=== PATIENT | female | born 1990 | race Caucasian/White ===

== ENCOUNTER 2018-08-17 14:51 | Observation (INO) ==
[2018-08-17] MEDS ORDERED: ONDANSETRON 4 MG/2 ML VIAL IV ONE ×2 (15:32→16:21)
--- NOTE | 2018-08-17 15:48 | Emergency Department Note ---
Fall HPI - General Chief Complaint: Fall Stated Complaint: fall from horse Time Seen by Provider: 08/17/18 15:21 Source: patient Mode of arrival: EMS Limitations: no limitations - History of Present Illness HPI Narrative: 27-year-old female presents after fall off a horse. The first was going about 20 miles an hour and she fell off hitting a pole. Most of her pain is on the left side. She denies hitting her head or loss of consciousness. She denies any neck pain. She denies any abdominal pain. She denies any numbness or tingling down her legs. In complaint is behind the left shoulder blade she has pain and from her waist to her low back she has pain. Pain is a lot worse with moving. She is currently on her menstrual cycle and does not thinks there is any chance of her being . - Related Data Home Medications Medication Instructions Recorded Confirmed No Known Home Meds 08/17/18 08/17/18 Allergies Allergy/AdvReac Type Severity Reaction Status Date / Time [place] Allergy Mild Verified 08/17/18 17:57 ciprofloxacin [From Cipro] Allergy Verified 08/17/18 14:53 Review of Systems All systems ED: reviewed and negative except as stated. Fall PMH - Past Medical History Medical history: Reports: non-contributory Surgical history ED: Reports: non-contributory Psychiatric history: Reports: no psych history [employer] history: Reports: non-contributory Family history: Reports: no significant family history - Social History smoking status: Never smoker Physical Exam Limitations: no limitations General appearance: alert, in no apparent distress Head: atraumatic Eye: Present: normal appearance. Absent: conjunctival injection Neck: Present: normal inspection, full ROM. Absent: tenderness Chest: Present: normal inspection, symmetric chest wall rise. Absent: tenderness Respiratory: Present: normal lung sounds bilaterally Cardiovascular: Present: tachycardia, normal heart sounds Abdominal: Present: soft, normal bowel sounds. Absent: tenderness Shoulder: Present: full ROM, tenderness, other (bilateral anterior shoulder is normal. She does have some tenderness lateral to the thoracic spine on the left side below the left shoulder blade. She has full range of motion. The scapula is nontender without deformity). Absent: swelling, deformity, dislocation, tenderness over AC joint Arm: Present: normal inspection, full ROM Elbow: Present: normal inspection, full ROM Forearm/Wrist: Present: normal inspection, full ROM Hand: Present: normal inspection, full ROM Hip/Pelvis: Present: normal inspection, full ROM, pelvis stable, other ( nontender with pelvic tilt) Upper leg: Present: normal inspection, full ROM Knee: Present: normal inspection, full ROM Lower leg: Present: normal inspection, full ROM Ankle: Present: normal inspection, full ROM Foot/toe: Present: normal inspection, full ROM Back: Present: other (she has paraspinal tenderness from the thoracic spine T10- 11 to the sacrum. She does not have any vertebral tenderness and there is no step-off deformities. There is no swelling or bruising. She states this is where her pain meds.). Absent: L-S tenderness, muscle spasm Neurological: Present: alert, oriented X3 Psychiatric: Present: normal affect, normal mood Skin: Present: warm, dry, intact Course Vital Signs Temperature 96.9 F L 08/17/18 14:54 Pulse Rate 101 H 08/17/18 14:54 Respiratory Rate 20 08/17/18 14:54 Blood Pressure 131/78 08/17/18 14:54 Temperature 98.3 F 08/17/18 17:52 Pulse Rate 77 08/17/18 17:33 Respiratory Rate 16 08/17/18 17:52 Blood Pressure 114/77 08/17/18 17:52 Pulse Oximetry (%) 100 08/17/18 17:52 Fall - MDM Narrative Medical decision making narrative: Because of the pulmonary contusion she will be admitted observation. Vitals stable and her pain was relatively controlled - Lab Data Lab results reviewed: Yes I reviewed the patient's lab results. Result diagrams: 08/17/18 17:03 08/17/18 17:03 Lab Results 08/17/18 08/17/18 Range/Units 17:03 17:03 WBC 11.6 H (4.5-11.0) K/mcL RBC 4.58 (4.00-5.20) M/mcL Hgb 13.7 (12.0-15.0) g/dL Hct 40.5 (36.0-48.0) % MCV 88.4 (80.0-100.0) fL MCH 29.9 (26.0-34.0) pg MCHC 33.8 (31.0-36.0) g/dL RDW 12.8 (11.5-14.5) % Plt Count 226 (140-440) K/mcL MPV 10.0 (7.4-10.4) fL Gran % 91.3 H (38.0-78.0) % Lymph % (Auto) 4.8 L (15.5-49.0) % Lee % (Auto) 3.3 (1.0-12.0) % Eos % (Auto) 0.3 (0.0-7.0) % Baso % (Auto) 0.3 (0.0-2.0) % Gran # 10.6 H (1.8-8.0) K/mcL Lymph # (Auto) 0.6 L (1.5-4.8) K/mcL Lee # (Auto) 0.4 (0.1-0.9) K/mcL Eos # (Auto) 0 (0.0-0.7) K/mcL Baso # (Auto) 0 (0.0-0.3) K/mcL Sodium 138 (133-145) mmol/L Potassium 3.3 (3.3-5.1) mmol/L Chloride 103 (96-108) mmol/L Carbon Dioxide 22 (22-30) mmol/L Anion Gap 13.0 (8-16) BUN 10 (6-20) mg/dl Creatinine 0.7 (0.6-1.1) mg/dl GFR Calculation 119 Glucose 111 H (70-105) mg/dL Calcium 9.1 (8.6-10.4) mg/dl Total Bilirubin 0.5 (0.0-1.0) mg/dL AST 58 H (0-37) U/l ALT 46 H (0-40) U/l Alkaline Phosphatase 41 (39-117) U/L Total Protein 7.0 (5.9-8.4) gm/dL Albumin 4.3 (3.2-5.2) gm/dL Globulin 2.7 (2.2-3.7) gm/dL Albumin/Globulin Ratio 1.6 (1.0-2.3) - Radiology Data Radiology results reviewed: Yes I reviewed the patient's radiology results. 1. Nondisplaced left eighth rib fracture. Pulmonary contusion. No hemothorax or pneumothorax 2. Stable compression fractures of the L1 and L2 vertebral bodies 3. No detectable solid organ injury or vascular injury but intravenous contrast material was not administered and sensitivity is somewhat limited. 4. No hemoperitoneum Disposition Pt seen by [employer]ULATOR/PA only: No Clinical Impression: Compression fracture, Pulmonary contusion, Rib fracture Disposition: Xfer As Outpt/Obs ([facility]) Condition: Fair
[2018-08-17] MEDS: HYDROmorphone 2 MG/ML VIAL IV PRN ×2 (16:02→18:36)
--- NOTE | 2018-08-17 16:45 | Cat Scan Report ---
CLINICAL INFORMATION: Fell from a horse TECHNIQUE: Axial noncontrast enhanced images through the chest, abdomen, pelvis. Sagittally and coronally reformatted images. COMPARISON: None. FINDINGS: Intravenous contrast material was not administered. In a post trauma examination the sensitivity for evaluation of solid organ injury and vascular injury is significantly decreased without the use of contrast material. CHEST: No pneumothorax or hemopneumothorax. There is mild left lower lobe infiltrate. This is posteriorly located. There is a nondisplaced fracture of the left eighth rib posteriorly. This left lower lobe infiltrate is consistent with pulmonary contusion. No other rib fractures are identified. Sternum is negative. Right ribs are negative. The scapula is negative bilaterally. No clavicle fracture. Proximal humerus is negative. Mediastinum and aorta are not well evaluated without intravenous contrast material. No detectable mediastinal hematoma. There is no pericardial effusion. Thoracic vertebral bodies are negative. No fracture. No paraspinal soft tissue mass. ABDOMEN, PELVIS: No detectable splenic injury. Splenic contour is smooth. There is no perisplenic fluid. No detectable liver injury. No perihepatic fluid. Kidneys are negative. No perinephric fluid. No evidence for pancreatic or duodenal injury. There is no hemoperitoneum. No free intraperitoneal fluid. There is no pneumoperitoneum. No mesenteric hematoma. There is a fracture of the L1 vertebral body. There is compression of the L1 superior endplate and fracture lines within the anterior column. Pedicles and lamina are intact. Spinous processes negative. This is consistent with a stable compression fracture. There is approximately 25% loss of height anteriorly with wedging deformity. No retropulsed fragment. There is a fracture of the L2 superior endplate with mild wedging deformity. There is 30% loss of height anteriorly. Pedicles and lamina are intact. There is no retropulsion. This is considered a stable compression fracture. Lumbar spine is otherwise negative. Transverse processes are negative. Sacrum is negative. No sacral fracture. Sacroiliac joints are within normal limits. Incidental note is made of asymmetric L5 transverse processes with sacral articulations. No pelvic fracture. No hip fracture. IMPRESSION: 1. Nondisplaced left eighth rib fracture. Pulmonary contusion. No hemothorax or pneumothorax 2. Stable compression fractures of the L1 and L2 vertebral bodies 3. No detectable solid organ injury or vascular injury but intravenous contrast material was not administered and sensitivity is somewhat limited. 4. No hemoperitoneum Interpreted and Authenticated by: Ike Berumen 08/17/18
[2018-08-17 17:40] LABS: Basophils # (Auto) 0 K/mcL (0.0-0.3); Basophils % (Auto) 0.3 % (0.0-2.0); Eosinophils # (Auto) 0 K/mcL (0.0-0.7); Eosinophils % (Auto) 0.3 % (0.0-7.0); Granulocytes % (Auto) 91.3 % (38.0-78.0); Lymphocytes # (Auto) 0.6 K/mcL (1.5-4.8); Lymphocytes % (Auto) 4.8 % (15.5-49.0); Mean Cell Volume 88.4 fL (80.0-100.0); Mean Corpuscular HGB Conc 33.8 g/dL (31.0-36.0); Mean Corpuscular Hemoglobin 29.9 pg (26.0-34.0); Monocytes # (Auto) 0.4 K/mcL (0.1-0.9); Monocytes % (Auto) 3.3 % (1.0-12.0); Platelet Count 226 K/mcL (140-440); RBC 4.58 M/mcL (4.00-5.20); Red Cell Distribution Width 12.8 % (11.5-14.5)
[2018-08-17 17:50] LABS: ALT/SGPT 46 U/l (0-40); Albumin 4.3 gm/dL (3.2-5.2); Albumin/Globulin Ratio 1.6 (1.0-2.3); Alkaline Phosphatase 41 U/L (39-117); Blood Urea Nitrogen 10 mg/dl (6-20)
[2018-08-17] MEDS ORDERED: ONDANSETRON 4 MG/2 ML VIAL IV PRN (18:31)
[2018-08-17] MEDS ORDERED: ONDANSETRON 4 MG/2 ML VIAL ONE (18:39)
[2018-08-17] MEDS ORDERED: PROMETHAZINE 25 MG/ML VIAL IV PRN (19:25)
[2018-08-17] MEDS ORDERED: HYDROmorphone 2 MG/ML VIAL IV PRN (19:25)
--- NOTE | 2018-08-17 19:28 | Emergency Department Note ---
ED Note Addendum Note Addendum: I saw this patient with Lisset Yanez PA-C. I agree with her evaluation management documentation. In particular I discussed the CT findings with the patient and reviewed plan with Lisset
--- NOTE | 2018-08-17 19:42 | General Surg History&Physical ---
History of Present Illness Patient information: Note initiated : 08/17/18 at 7:39 pm Service Date, if different from initiated Date: [] Patient: Brii Ortez a 27 y/o F admitted on 08/17/18 for fall from horse. Chief Complaint: [] HPI: Ms. Ortez is a 27 year old F admitted for observation AFTER accident in which she was thrown from her horse striking her back and upper thorax against a wooden post.. She complains of left posterior lateral chest pain and lumbar back pain. She denies head injury. She denies any discomfort in her neck or her upper or lower extremities.. She denies hip pain or pelvic pain. CT of the chest reveals a nondisplaced T8 rib fracture posteriorly as well as POSTERIOR LATERAL LUNG CONTUSION with early infiltrate. There is no pneumothorax and no hemothorax. Abdominal CT does not reveal any solid organ injury and there is no free fluid in the pelvis or abdomen... Patient is admitted for control of pain and observation of her left lung contusion. Her O2 saturations are 99% on room air. Review of Systems - Constitutional headache(s) (history of migraine headaches) Past History Past medical history: No chronic medical illness Past surgical history: Cholecystectomy in March 2018 Past family history: Mother age 59 with hypertension Father age 69 with hypertension and depression Past social history: Denies tobacco use uSES ALCOHOL about once a month Denies drug use Medications and Allergies Home Medications Medication Instructions Recorded Confirmed Type No Known Home Meds 08/17/18 08/17/18 History Allergies Allergy/AdvReac Type Severity Reaction Status Date / Time kiwi Allergy Mild Verified 08/17/18 17:57 [place] Allergy Mild Verified 08/17/18 17:57 ciprofloxacin [From Cipro] Allergy Verified 08/17/18 14:53 Exam Temp Pulse Resp BP Pulse Ox 98.3 F 77 16 114/77 100 08/17/18 17:52 08/17/18 17:33 08/17/18 17:52 08/17/18 17:52 08/17/18 17:52 - General physical appearance moderate distress, moderate pain, other (very thin framed young female easy tearing with moderate distress due to back pain not use it was December so we wanted while hospital have a little while she is on. So assessment because otherwise Does not osteoarthritis.) - Eyes PERRL, normal ocular movement - ENT normal pinna, normal nares, normal mucosa, no hearing loss, no congestion, other ( no facial tenderness or asymmetry no bruises or abrasions) - Head Head exam IM: Present: atraumatic (NO TENDERNESS,,,,,,,,,,,,,,, abrasion,,,,,, or bruising of the scalp or cranium), normal inspection, normocephalic - Neck no masses ( no posterior), no bruits, trachea midline, no lymphadenopathy, no venous distension, other ( no posterior neck contusion or abrasion; excellent range of motion without discomfort no soft tissue injury of neck ;; trachea midline without any tenderness) - Cardiovascular Cardiovascular exam IM: Present: normal rate and rhythm, RRR, +S1, +S2. Absent : JVD, rubs, tachycardia - Respiratory normal expansion, normal respiratory effort, clear to auscultation, other ( no pleural rub;a superficial skin abrasion over left scapula without significant skin breakdown) - Abdomen Abdomen: Present: soft, non tender ( no tenderness noted ;no guarding; active bowel sounds), bowel sounds Hernia: Present: none - Genitourinary Present: normal external genitalia - Integumentary Present: no rash, no growths, no abnormal pigmentation - Neurologic Present: normal coordination, normal sensation ( no sensory loss in the upper or lower extremities), deep tendon reflexes ( deep tendon reflexes in upper and lower extremities are brisk and equal) - Musculoskeletal Present: other ( no bony deformity of anterior or posterior chest; no bony deformity of upper or lower extremities; stable pelvis to anterior posterior compression and lateral compression;;;;;;;;;;;;;;; excellent range of motion of both hips AND LONG BONES OF LOWER EXTREMITIES) - Psychiatric Present: oriented to time, oriented to person, oriented to place, speech is normal, memory intact Assessment and Plan (1) Blunt trauma to chest Oxygen saturations will be monitored Follow-up chest x-ray in the morning Status: Acute Priority: High Qualifiers: Encounter type: initial encounter Qualified Code(s): S29.8XXA - Other specified injuries of thorax, initial encounter (2) Compression fracture We'll treat symptomatically with analgesics and muscle relaxants Status: Acute Priority: Medium (3) Pulmonary contusion Follow-up chest x-ray in the morning Status: Acute Priority: Medium Qualifiers: Encounter type: initial encounter Laterality: left Qualified Code(s): S27.321A - Contusion of lung, unilateral, initial encounter (4) Rib fracture Status: Acute Priority: Low Qualifiers: Encounter type: initial encounter Rib fracture type: single rib Fracture type: closed Laterality: left Qualified Code(s): S22.32XA - Fracture of one rib, left side, initial encounter for closed fracture
[2018-08-17 21:11] LABS: Appearance,Urine CLEAR; Bacteria,Urine 0 /hpf (0); Bilirubin,Urine NEG (NEG); Color,Urine YELLOW; Glucose,Urine (UA) NEGATIVE (NEG); Leukocyte Esterase,Urine NEG /uL (NEG); Mucus,Urine FEW /hpf (0); Protein,Urine NEG (NEG); Specific Gravity,Urine 1.018 (1.000-1.035); Urine Blood NEG mg/dL (<0.03); Urine Hyaline Cast 1 /lpf (0-2); Urine RBC 1 /hpf (0-1); Urine Squamous Epithelial Cell 0 /hpf (0-4); Urine WBC 2 /hpf (0-4); Urobilinogen,Urine NEG (NEG)
[2018-08-17] MEDS: KETOROLAC 15 MG/ML VIAL IV SCH (21:39)
[2018-08-17] MEDS: PANTOPRAZOLE 40 MG TABLET PO SCH (21:41)
[2018-08-17] MEDS: CYCLOBENZAPRINE 10 MG TABLET PO PRN (21:41)
[2018-08-17] MEDS: oxyCODONE/APAP 5/325MG TABLET PO PRN (23:42)
[2018-08-18] MEDS: KETOROLAC 15 MG/ML VIAL IV SCH ×3 (00:41→12:17)
[2018-08-18] MEDS: oxyCODONE/APAP 5/325MG TABLET PO PRN ×2 (04:09→09:37)
[2018-08-18] MEDS: CYCLOBENZAPRINE 10 MG TABLET PO PRN (05:41)
[2018-08-18] MEDS: PANTOPRAZOLE 40 MG TABLET PO SCH (07:15)
--- NOTE | 2018-08-18 08:18 | XRay Report ---
CLINICAL INFORMATION: Fell from a horse. Left eighth rib fracture TECHNIQUE: AP portable semiupright chest x-ray COMPARISON: CT scan dated 08/17/2018 FINDINGS: Left eighth rib fracture is not visualized on plain film examination. No pneumothorax or hemothorax. No pulmonary parenchymal infiltrate. Heart size and mediastinum are normal. IMPRESSION: Negative AP chest x-ray Interpreted and Authenticated by: Ike Berumen 08/18/18
[2018-08-18 10:52] LABS: Basophils # (Auto) 0 K/mcL (0.0-0.3); Basophils % (Auto) 0.5 % (0.0-2.0); Eosinophils # (Auto) 0.1 K/mcL (0.0-0.7); Eosinophils % (Auto) 1.9 % (0.0-7.0); Granulocytes % (Auto) 70.5 % (38.0-78.0); Lymphocytes # (Auto) 1.1 K/mcL (1.5-4.8); Lymphocytes % (Auto) 19.5 % (15.5-49.0); Mean Cell Volume 88.8 fL (80.0-100.0); Mean Corpuscular HGB Conc 34.1 g/dL (31.0-36.0); Mean Corpuscular Hemoglobin 30.2 pg (26.0-34.0); Monocytes # (Auto) 0.4 K/mcL (0.1-0.9); Monocytes % (Auto) 7.6 % (1.0-12.0); Platelet Count 192 K/mcL (140-440); RBC 4.23 M/mcL (4.00-5.20); Red Cell Distribution Width 12.7 % (11.5-14.5)
--- NOTE | 2018-08-18 13:41 | General Surgery Progress Note ---
Subjective Patient reports: still having pain, pain is less, tolerating a regular diet, flatus, bowel movement, afebrile Narrative: Note initiated : 08/18/18 at 1:39 pm Service Date, if different from initiated Date: [] Patient: Brii Ortez 27 y/o F admitted on 08/17/18 for fall from horse. Chief Complaint: [ patient has done well. She does not have much chest pain.. Her major discomfort is her low lumbar area. She has no weakness of her lower extremities and she does not have any paresthesias.. Chest x-ray shows no significant infiltrate or atelectasis of her lung. Her white blood count is normal. Her oxygen saturations have been normal on room air] Objective Temp Pulse Resp BP Pulse Ox 98 F 116 H 16 110/74 100 08/18/18 12:00 08/18/18 12:00 08/18/18 12:00 08/18/18 12:00 08/18/18 12:00 - Additional Data Intake & Output - Last 24 hours: Intake & Output 08/16/18 08/17/18 08/18/18 08/19/18 05:59 05:59 05:59 05:59 Intake Total 360 / 360 Balance 360 / 360 Weight 127 lb - General physical appearance well developed, well nourished, no distress, moderate pain - Eyes PERRL, normal ocular movement - ENT normal pinna, normal nares, normal mucosa, no hearing loss, no congestion - Neck no masses, no bruits, trachea midline, no lymphadenopathy, no venous distension - Respiratory normal expansion, normal respiratory effort, clear to auscultation, other ( lungs are totally clear without any rub or rales) - Cardiovascular Cardiovascular exam: Present: normal rate and rhythm, RRR, +S1, +S2. Absent: JVD, tachycardia - Abdomen non tender, bowel sounds (present), surgical scars (none), masses (none) - Integumentary no rash, no growths, no abnormal pigmentation - Neurologic normal coordination, normal sensation, other ( detected reflexes are brisk and symmetric) - Musculoskeletal normal gait, normal posture, other ( ambulates without any significant deficit) - Psychiatric oriented to time, oriented to person, oriented to place, speech is normal, memory intact - Labs 08/18/18 09:30 08/17/18 17:03 Diabetes panel 08/17/18 Range/Units 17:03 Sodium 138 (133-145) mmol/L Potassium 3.3 (3.3-5.1) mmol/L Chloride 103 (96-108) mmol/L Carbon Dioxide 22 (22-30) mmol/L BUN 10 (6-20) mg/dl Creatinine 0.7 (0.6-1.1) mg/dl Glucose 111 H (70-105) mg/dL Calcium 9.1 (8.6-10.4) mg/dl AST 58 H (0-37) U/l ALT 46 H (0-40) U/l Alkaline Phosphatase 41 (39-117) U/L Total Protein 7.0 (5.9-8.4) gm/dL Albumin 4.3 (3.2-5.2) gm/dL Calcium panel 08/17/18 Range/Units 17:03 Calcium 9.1 (8.6-10.4) mg/dl Albumin 4.3 (3.2-5.2) gm/dL Pituitary panel 08/17/18 Range/Units 17:03 Sodium 138 (133-145) mmol/L Potassium 3.3 (3.3-5.1) mmol/L Chloride 103 (96-108) mmol/L Carbon Dioxide 22 (22-30) mmol/L BUN 10 (6-20) mg/dl Creatinine 0.7 (0.6-1.1) mg/dl Glucose 111 H (70-105) mg/dL Calcium 9.1 (8.6-10.4) mg/dl Adrenal panel 08/17/18 Range/Units 17:03 Sodium 138 (133-145) mmol/L Potassium 3.3 (3.3-5.1) mmol/L Chloride 103 (96-108) mmol/L Carbon Dioxide 22 (22-30) mmol/L BUN 10 (6-20) mg/dl Creatinine 0.7 (0.6-1.1) mg/dl Glucose 111 H (70-105) mg/dL Calcium 9.1 (8.6-10.4) mg/dl Total Bilirubin 0.5 (0.0-1.0) mg/dL AST 58 H (0-37) U/l ALT 46 H (0-40) U/l Alkaline Phosphatase 41 (39-117) U/L Total Protein 7.0 (5.9-8.4) gm/dL Albumin 4.3 (3.2-5.2) gm/dL Assessment and Plan (1) Blunt trauma to chest Status: Acute Assessment and plan: Ventilatory status is stable with excellent oxygenation. No significant splinting Patient is stable for discharge home Current Visit: Yes (2) Compression fracture Status: Acute Current Visit: Yes (3) Pulmonary contusion Status: Acute Assessment and plan: Chest x-ray does not show any significant infiltrate or atelectasis Current Visit: Yes (4) Rib fracture Status: Acute Current Visit: Yes - Time Spent With Patient Total time spent is greater than 50% in coordination of care (as documented) at patient's floor/unit and/or counseling patient:
== END 2018-08-18 14:43 | disposition home or self-care (01) ==
LOC: ED 14:51 → MEDSUR 14:51
PROVIDERS: ADMIT Family Medicine Adult Medicine; ATTEND Family Medicine Adult Medicine
CPT/HCPCS: 99217; 99218; G0378; J1170; J1885; J2405; J2550